=== PATIENT | female | born 1955 | race American Indian/Alaskan Native ===

== ENCOUNTER 2017-03-14 09:07 | Outpatient (CLI) | payer OTHER ==
--- NOTE | 2017-03-15 14:12 | Mammography Report ---
BILATERAL DIGITAL SCREENING MAMMOGRAM WITH CAD: 03/14/17 09:07:00 CLINICAL: Routine screening.Breast cancer survivor status post left partial mastectomy. COMPARISON:03/27/16 and 01/07/13 FINDINGS: The left breast exam only fatty in the right breast is heterogeneously dense, which may obscures small masses. Stable left upper outer scar. No mass, suspicious architectural distortion or suspicious calcifications. IMPRESSION: No mammographic evidence of malignancy. BI-RADS CATEGORY: 2 -- Benign RECOMMENDATION: Routine mammographic screening in one year. COMMENT: Patient follow-up letters are generated via our [employer] application.
== END 2017-03-14 09:08 | disposition home or self-care (01) ==
LOC: SPVWC 09:07 → EDSTATUS 09:30
PROVIDERS: ATTEND Internal Medicine Hematology & Oncology
DX: Z12.31 Encounter for screening mammogram for malignant neoplasm of breast (principal)
CPT/HCPCS: 77067; G0202